=== PATIENT | female | born 1975 | race Two or more races ===

== ENCOUNTER 2024-02-28 08:16 | Emergency (ER) | payer MEDICAID, OTHER ==
[~2024-02-28] VITALS: Ht 162.6 cm; Wt 68.5 kg
[2024-02-28 08:45] VITALS: PULSE 82; RESP 16; TEMP 98.5; O2SAT 98
[2024-02-28 10:45] VITALS: BP 105/68; PULSE 75; RESP 16; O2SAT 98
== END 2024-02-28 11:06 | disposition home or self-care (01) ==
LOC: ER 08:16
DX: G45.9 Transient cerebral ischemic attack, unspecified (principal); E11.9 Type 2 diabetes mellitus without complications
CPT/HCPCS: 70450; 82962